=== PATIENT | male | born 1930 | race Caucasian/White ===

== ENCOUNTER 2018-01-04 14:56 | Inpatient (IN) | payer MEDICARE, OTHER ==
[2018-01-04] MEDS: FUROSEMIDE 40 MG INJ IV (15:25)
[2018-01-04] MEDS: ASPIRIN 325 MG TAB PO (15:25)
[2018-01-04] MEDS: NITROGLYCERIN 50 MG/D5W (PMX) 250 ML IV (15:30)
[2018-01-04 15:44] LABS: ADD MAN DIFF? NO
[2018-01-04 15:48] LABS: ABNORMAL IP MESSAGE 1; BASOPHILS % 0.3 % (0.0-2.0); EOSINOPHILS # 0.1 10^3/ul (0.0-0.5); EOSINOPHILS % 1.2 % (0.0-7.0); HEMATOCRIT 24.6 % (42.0-52.0); HEMOGLOBIN 8.1 g/dl (14.0-18.0); LYMPHOCYTES # 1.9 10^3/ul (0.8-2.9); MEAN CORPUSCULAR HEMOGLOBIN 35.5 pg (29.0-33.0); MEAN CORPUSCULAR HGB CONC 32.9 g/dl (32.0-37.0); MEAN CORPUSCULAR VOLUME 107.9 fl (82.0-101.0); MEAN PLATELET VOLUME 10.5 fl (7.4-10.4); MONOCYTE # 0.7 10^3/ul (0.3-0.9); MONOCYTES % 8.5 % (0.0-11.0); NEUTROPHIL # 5.8 10^3/ul (1.6-7.5); NEUTROPHILS % 66.4 % (39.0-77.0); NUCLEATED RED BLOOD CELLS% 0.2 /100WBC (0.0-0.0); PLATELET COUNT 329 10^3/UL (140-415); POSITIVE DIFF @See below; RED BLOOD COUNT 2.28 10^6/ul (4.70-6.10); RED CELL DISTRIBUTION WIDTH 23.1 % (11.5-14.5)
[2018-01-04 15:48] LABS: WHITE BLOOD COUNT 8.7 10^3/ul (4.8-10.8)
[2018-01-04] MEDS: ALBUTEROL 0.5% (NEB) 2.5 MG/0.5 ML AMP INH (16:04)
[2018-01-04 16:14] LABS: ALANINE AMINOTRANSFERASE 17 IU/L (13-69); ALBUMIN 4.8 g/dl (3.3-4.9); ALBUMIN/GLOBULIN RATIO 1.54; ALKALINE PHOSPHATASE 67 IU/L (42-121); ASPARTATE AMINO TRANSFERASE 20 IU/L (15-46); BILIRUBIN,INDIRECT 0.4 mg/dl (0-1.1); BILIRUBIN,TOTAL 0.4 mg/dl (0.2-1.3); BLOOD UREA NITROGEN 29 mg/dl (7-20); CALCIUM 9.8 mg/dl (8.4-10.2); CHLORIDE 97 mmol/L (97-110); CREATININE 1.44 mg/dl (0.61-1.24); GLUCOSE 160 mg/dl (70-220); SODIUM 138 mmol/L (135-144); TOTAL PROTEIN 7.9 g/dl (6.1-8.1)
[2018-01-04 16:15] LABS: INR 1.04; PROTIME 13.7 Sec (11.9-14.9); PT RATIO 1.1
[2018-01-04 16:16] LABS: PARTIAL THROMBOPLASTIN TIME 26.6 Sec (25.0-35.0)
[2018-01-04] MEDS: ENALAPRILAT 1.25 MG INJ IV (16:19)
[2018-01-04 16:23] LABS: B-TYPE NATRIURETIC PEPTIDE 2360 PG/ML (0-450); TROPONIN-I 0.018 ng/ml (0.00-0.12)
[2018-01-04 16:29] LABS: ANION GAP 21 (8-16)
[2018-01-04 16:30] LABS: CARBON DIOXIDE 24 mmol/L (21-31)
[2018-01-04] MEDS ORDERED: ALBUTEROL 0.083% (NEB) 2.5 MG/3 ML AMP NEB (17:30)
[2018-01-04] MEDS ORDERED: ACETAMINOPHEN 325 MG TAB PO (17:30)
[2018-01-04] MEDS ORDERED: DOCUSATE SODIUM 100 MG CAP PO (17:30)
[2018-01-04] MEDS ORDERED: MAGNESIUM HYDROXIDE 30ML CUP PO (17:30)
[2018-01-04] MEDS ORDERED: NITROGLYCERIN 50 MG/D5W (PMX) 250 ML IV (17:30)
[2018-01-04] MEDS: ONDANSETRON 4 MG INJ IV (18:14)
[2018-01-04] MEDS: morphine 2 MG INJ IV (18:14)
[2018-01-04 18:30] LABS: IRON 117 ug/dl (35-150)
[2018-01-04] MEDS ORDERED: GLUCAGON 1 MG INJ IM (18:30)
[2018-01-04] MEDS ORDERED: GLUCOSE GEL 15 GRAM TUBE BUCCAL (18:30)
[2018-01-04] MEDS ORDERED: GLUCOSE GEL 15 GRAM TUBE PO ×2 (18:30)
[2018-01-04] MEDS ORDERED: DEXTROSE 50% 50 ML SYRINGE IV ×2 (18:30)
[2018-01-04 18:39] LABS: % IRON SATURATION 30 % SAT (22-52); TOTAL IRON BINDING CAPACITY 393 ug/dl (241-421)
[2018-01-04 19:20] LABS: HEMOGLOBIN A1C 6.8 % (0-5.9)
[2018-01-04] MEDS: TAMSULOSIN (SR) 0.4 MG CAP PO (21:27)
[2018-01-04] MEDS: ATORVASTATIN 40 MG TAB PO (21:27)
[2018-01-04] MEDS: ISOSORBIDE MONONITRATE(SR)60 MG TAB PO (21:28)
[2018-01-04 21:58] LABS: CREATINE KINASE 72 IU/L (23-200)
[2018-01-04 22:12] LABS: CK INDEX 7.6; CK-MB 5.44 ng/ml (0.0-2.4)
[2018-01-04] MEDS: INSULIN ASPART [NOVOLOG] 3 ML PEN SC (22:57)
[2018-01-05] MEDS: ACCU-CHEK XX (02:18)
[2018-01-05 03:33] LABS: ADD MAN DIFF? NO
[2018-01-05 04:07] LABS: ALBUMIN 3.4 g/dl (3.3-4.9); ANION GAP 15 (8-16); BLOOD UREA NITROGEN 25 mg/dl (7-20); CARBON DIOXIDE 27 mmol/L (21-31); CHLORIDE 99 mmol/L (97-110); CREATINE KINASE 86 IU/L (23-200); CREATININE 1.24 mg/dl (0.61-1.24); GLUCOSE 223 mg/dl (70-220); MAGNESIUM 2.1 mg/dl (1.7-2.5); PHOSPHORUS 3.2 mg/dl (2.5-4.9); SODIUM 137 mmol/L (135-144)
[2018-01-05 04:19] LABS: CK INDEX 6.6
[2018-01-05 04:31] LABS: CK-MB 5.69 ng/ml (0.0-2.4)
[2018-01-05 05:05] LABS: WHITE BLOOD COUNT 4.8 10^3/ul (4.8-10.8)
[2018-01-05 05:05] LABS: ABNORMAL IP MESSAGE 1; BASOPHILS % 0.2 % (0.0-2.0); EOSINOPHILS % 0.8 % (0.0-7.0); HEMATOCRIT 18.4 % (42.0-52.0); LYMPHOCYTES # 0.9 10^3/ul (0.8-2.9); LYMPHOCYTES % 18.4 % (15.0-51.0); MEAN CORPUSCULAR HEMOGLOBIN 35.7 pg (29.0-33.0); MEAN CORPUSCULAR HGB CONC 33.2 g/dl (32.0-37.0); MEAN CORPUSCULAR VOLUME 107.6 fl (82.0-101.0); MONOCYTE # 0.4 10^3/ul (0.3-0.9); MONOCYTES % 8.1 % (0.0-11.0); NEUTROPHIL # 3.4 10^3/ul (1.6-7.5); NEUTROPHILS % 71.2 % (39.0-77.0); PLATELET COUNT 198 10^3/UL (140-415); POSITIVE DIFF @See below; RED BLOOD COUNT 1.71 10^6/ul (4.70-6.10); RED CELL DISTRIBUTION WIDTH 23.3 % (11.5-14.5)
[2018-01-05 05:13] LABS: HEMOGLOBIN 6.1 g/dl (14.0-18.0)
[2018-01-05 05:29] LABS: CREATINE KINASE 81 IU/L (23-200)
[2018-01-05] MEDS: FUROSEMIDE 20 MG INJ IV ×2 (05:36→18:15)
[2018-01-05] MEDS: PANTOPRAZOLE (EC) 40 MG TAB PO (05:36)
[2018-01-05] MEDS: INSULIN ASPART [NOVOLOG] 3 ML PEN SC ×5 (08:02→21:43)
[2018-01-05] MEDS: ISOSORBIDE MONONITRATE(SR)60 MG TAB PO ×2 (09:00→21:37)
[2018-01-05] MEDS: SPIRONOLACTONE 50 MG TAB PO (09:39)
[2018-01-05] MEDS: CLOPIDOGREL 75 MG TAB PO (09:39)
[2018-01-05] MEDS: ASPIRIN (EC) 81 MG TAB PO (09:39)
[2018-01-05 12:32] LABS: FOLATE > 20.0 ng/ml (2.8-20.0)
[2018-01-05 18:21] LABS: HEMATOCRIT 27.7 % (42.0-52.0); HEMOGLOBIN 9.3 g/dl (14.0-18.0)
[2018-01-05] MEDS: TAMSULOSIN (SR) 0.4 MG CAP PO (21:37)
[2018-01-05] MEDS: ATORVASTATIN 40 MG TAB PO (21:37)
[2018-01-05] MEDS: METOPROLOL 25 MG TAB PO (21:38)
[2018-01-06] MEDS: ACCU-CHEK XX (03:12)
[2018-01-06] MEDS: PANTOPRAZOLE (EC) 40 MG TAB PO (06:04)
[2018-01-06] MEDS: FUROSEMIDE 20 MG INJ IV ×2 (06:05→17:16)
[2018-01-06 06:20] LABS: ADD MAN DIFF? NO
[2018-01-06 06:29] LABS: ABNORMAL IP MESSAGE 1; BASOPHILS % 0.4 % (0.0-2.0); EOSINOPHILS # 0.1 10^3/ul (0.0-0.5); EOSINOPHILS % 1.6 % (0.0-7.0); HEMATOCRIT 26.7 % (42.0-52.0); HEMOGLOBIN 9.1 g/dl (14.0-18.0); LYMPHOCYTES # 1.2 10^3/ul (0.8-2.9); LYMPHOCYTES % 14.9 % (15.0-51.0); MEAN CORPUSCULAR HEMOGLOBIN 34.3 pg (29.0-33.0); MEAN CORPUSCULAR HGB CONC 34.1 g/dl (32.0-37.0); MEAN CORPUSCULAR VOLUME 100.8 fl (82.0-101.0); MEAN PLATELET VOLUME 10.6 fl (7.4-10.4); MONOCYTE # 0.6 10^3/ul (0.3-0.9); MONOCYTES % 7.7 % (0.0-11.0); NEUTROPHIL # 6.1 10^3/ul (1.6-7.5); NEUTROPHILS % 73.9 % (39.0-77.0); PLATELET COUNT 232 10^3/UL (140-415); POSITIVE DIFF @See below; RED BLOOD COUNT 2.65 10^6/ul (4.70-6.10); RED CELL DISTRIBUTION WIDTH 22.7 % (11.5-14.5)
[2018-01-06 06:29] LABS: WHITE BLOOD COUNT 8.3 10^3/ul (4.8-10.8)
[2018-01-06 07:03] LABS: ANION GAP 18 (8-16); BLOOD UREA NITROGEN 27 mg/dl (7-20); CALCIUM 9.3 mg/dl (8.4-10.2); CARBON DIOXIDE 25 mmol/L (21-31); CHLORIDE 99 mmol/L (97-110); CREATININE 1.32 mg/dl (0.61-1.24); GLUCOSE 160 mg/dl (70-220); POTASSIUM 4.6 mmol/L (3.5-5.1); SODIUM 137 mmol/L (135-144)
[2018-01-06 07:24] LABS: MAGNESIUM 2.1 mg/dl (1.7-2.5)
[2018-01-06] MEDS: ASPIRIN (EC) 81 MG TAB PO (08:47)
[2018-01-06] MEDS: CLOPIDOGREL 75 MG TAB PO (08:47)
[2018-01-06] MEDS: ISOSORBIDE MONONITRATE(SR)60 MG TAB PO ×2 (08:47→20:51)
[2018-01-06] MEDS: METOPROLOL 25 MG TAB PO ×2 (08:48→20:51)
[2018-01-06] MEDS: INSULIN ASPART [NOVOLOG] 3 ML PEN SC ×4 (08:50→20:56)
[2018-01-06 17:45] LABS: IMMEDIATE SPIN CROSSMATCH 1 3
[2018-01-06] MEDS: TAMSULOSIN (SR) 0.4 MG CAP PO (20:50)
[2018-01-06] MEDS: ATORVASTATIN 40 MG TAB PO (20:51)
[2018-01-07] MEDS: ACCU-CHEK XX (02:00)
[2018-01-07] MEDS: PANTOPRAZOLE (EC) 40 MG TAB PO (05:55)
[2018-01-07] MEDS: FUROSEMIDE 20 MG INJ IV (05:55)
[2018-01-07 06:47] LABS: ADD MAN DIFF? NO
[2018-01-07 07:03] LABS: ABNORMAL IP MESSAGE 1; BASOPHILS % 0.3 % (0.0-2.0); EOSINOPHILS # 0.2 10^3/ul (0.0-0.5); EOSINOPHILS % 3.3 % (0.0-7.0); HEMATOCRIT 28.6 % (42.0-52.0); HEMOGLOBIN 9.6 g/dl (14.0-18.0); LYMPHOCYTES % 16.4 % (15.0-51.0); MEAN CORPUSCULAR HEMOGLOBIN 32.8 pg (29.0-33.0); MEAN CORPUSCULAR HGB CONC 33.6 g/dl (32.0-37.0); MEAN CORPUSCULAR VOLUME 97.6 fl (82.0-101.0); MEAN PLATELET VOLUME 10.8 fl (7.4-10.4); MONOCYTE # 0.4 10^3/ul (0.3-0.9); MONOCYTES % 6.7 % (0.0-11.0); NEUTROPHIL # 4.3 10^3/ul (1.6-7.5); NEUTROPHILS % 71.5 % (39.0-77.0); PLATELET COUNT 188 10^3/UL (140-415); POSITIVE DIFF @See below; RED BLOOD COUNT 2.93 10^6/ul (4.70-6.10); RED CELL DISTRIBUTION WIDTH 22.5 % (11.5-14.5)
[2018-01-07 07:03] LABS: WHITE BLOOD COUNT 6.1 10^3/ul (4.8-10.8)
[2018-01-07 07:17] LABS: ALBUMIN 3.8 g/dl (3.3-4.9); ANION GAP 13 (8-16); BLOOD UREA NITROGEN 37 mg/dl (7-20); CALCIUM 9.4 mg/dl (8.4-10.2); CARBON DIOXIDE 28 mmol/L (21-31); CHLORIDE 100 mmol/L (97-110); CREATININE 1.36 mg/dl (0.61-1.24); GLUCOSE 168 mg/dl (70-220); MAGNESIUM 2.1 mg/dl (1.7-2.5); PHOSPHORUS 3.8 mg/dl (2.5-4.9); POTASSIUM 4.9 mmol/L (3.5-5.1); SODIUM 136 mmol/L (135-144)
[2018-01-07] MEDS: CLOPIDOGREL 75 MG TAB PO (08:46)
[2018-01-07] MEDS: METOPROLOL 25 MG TAB PO ×2 (08:47→20:57)
[2018-01-07] MEDS: ASPIRIN (EC) 81 MG TAB PO (08:47)
[2018-01-07] MEDS: ISOSORBIDE MONONITRATE(SR)60 MG TAB PO ×2 (08:47→20:58)
[2018-01-07] MEDS: INSULIN ASPART [NOVOLOG] 3 ML PEN SC ×4 (08:53→21:00)
[2018-01-07] MEDS: FUROSEMIDE 40 MG TAB PO (18:12)
[2018-01-07] MEDS: ATORVASTATIN 40 MG TAB PO (20:57)
[2018-01-07] MEDS: TAMSULOSIN (SR) 0.4 MG CAP PO (20:57)
[2018-01-08] MEDS: ACCU-CHEK XX (02:00)
[2018-01-08] MEDS: FUROSEMIDE 40 MG TAB PO ×2 (06:01→17:33)
[2018-01-08] MEDS: PANTOPRAZOLE (EC) 40 MG TAB PO (06:01)
[2018-01-08 07:50] LABS: ADD MAN DIFF? NO
[2018-01-08 08:01] LABS: BASOPHILS % 0.4 % (0.0-2.0); EOSINOPHILS # 0.2 10^3/ul (0.0-0.5); HEMOGLOBIN 9.4 g/dl (14.0-18.0); LYMPHOCYTES # 0.9 10^3/ul (0.8-2.9); MEAN CORPUSCULAR HEMOGLOBIN 33.3 pg (29.0-33.0); MEAN CORPUSCULAR HGB CONC 33.6 g/dl (32.0-37.0); MEAN CORPUSCULAR VOLUME 99.3 fl (82.0-101.0); MEAN PLATELET VOLUME 10.8 fl (7.4-10.4); MONOCYTE # 0.4 10^3/ul (0.3-0.9); MONOCYTES % 8.3 % (0.0-11.0); NEUTROPHIL # 3.2 10^3/ul (1.6-7.5); NEUTROPHILS % 65.4 % (39.0-77.0); PLATELET COUNT 176 10^3/UL (140-415); RED BLOOD COUNT 2.82 10^6/ul (4.70-6.10)
[2018-01-08 08:01] LABS: WHITE BLOOD COUNT 4.8 10^3/ul (4.8-10.8)
[2018-01-08 08:29] LABS: ALBUMIN 3.8 g/dl (3.3-4.9); ANION GAP 15 (8-16); BLOOD UREA NITROGEN 45 mg/dl (7-20); CALCIUM 9.4 mg/dl (8.4-10.2); CARBON DIOXIDE 28 mmol/L (21-31); CHLORIDE 101 mmol/L (97-110); CREATININE 1.36 mg/dl (0.61-1.24); GLUCOSE 160 mg/dl (70-220); MAGNESIUM 2.2 mg/dl (1.7-2.5); POTASSIUM 4.5 mmol/L (3.5-5.1); SODIUM 139 mmol/L (135-144)
[2018-01-08] MEDS: INSULIN ASPART [NOVOLOG] 3 ML PEN SC ×4 (08:59→21:50)
[2018-01-08] MEDS: METOPROLOL 25 MG TAB PO ×2 (09:00→21:40)
[2018-01-08] MEDS: ISOSORBIDE MONONITRATE(SR)60 MG TAB PO ×2 (09:01→21:40)
[2018-01-08] MEDS: ASPIRIN (EC) 81 MG TAB PO (09:02)
[2018-01-08] MEDS: CLOPIDOGREL 75 MG TAB PO (09:02)
[2018-01-08] MEDS: TAMSULOSIN (SR) 0.4 MG CAP PO (21:39)
[2018-01-08] MEDS: ATORVASTATIN 40 MG TAB PO (21:51)
[2018-01-09] MEDS: ACCU-CHEK XX (02:48)
[2018-01-09] MEDS: FUROSEMIDE 40 MG TAB PO (06:00)
[2018-01-09] MEDS: PANTOPRAZOLE (EC) 40 MG TAB PO (06:09)
[2018-01-09 07:26] LABS: ADD MAN DIFF? NO
[2018-01-09 07:30] LABS: BASOPHILS % 0.6 % (0.0-2.0); EOSINOPHILS # 0.2 10^3/ul (0.0-0.5); EOSINOPHILS % 4.3 % (0.0-7.0); HEMATOCRIT 27.1 % (42.0-52.0); LYMPHOCYTES % 18.1 % (15.0-51.0); MEAN CORPUSCULAR HEMOGLOBIN 32.7 pg (29.0-33.0); MEAN CORPUSCULAR HGB CONC 33.2 g/dl (32.0-37.0); MEAN CORPUSCULAR VOLUME 98.5 fl (82.0-101.0); MEAN PLATELET VOLUME 10.9 fl (7.4-10.4); MONOCYTE # 0.4 10^3/ul (0.3-0.9); MONOCYTES % 7.5 % (0.0-11.0); NEUTROPHIL # 3.6 10^3/ul (1.6-7.5); NEUTROPHILS % 68.2 % (39.0-77.0); PLATELET COUNT 187 10^3/UL (140-415); RED BLOOD COUNT 2.75 10^6/ul (4.70-6.10); RED CELL DISTRIBUTION WIDTH 21.3 % (11.5-14.5)
[2018-01-09 07:30] LABS: WHITE BLOOD COUNT 5.3 10^3/ul (4.8-10.8)
[2018-01-09 07:54] LABS: ANION GAP 13 (8-16); BLOOD UREA NITROGEN 50 mg/dl (7-20); CALCIUM 9.5 mg/dl (8.4-10.2); CARBON DIOXIDE 28 mmol/L (21-31); CHLORIDE 98 mmol/L (97-110); CREATININE 1.23 mg/dl (0.61-1.24); GLUCOSE 172 mg/dl (70-220); PHOSPHORUS 3.8 mg/dl (2.5-4.9); POTASSIUM 4.8 mmol/L (3.5-5.1); SODIUM 134 mmol/L (135-144)
[2018-01-09 07:56] LABS: MAGNESIUM 2.2 mg/dl (1.7-2.5)
[2018-01-09] MEDS: INSULIN ASPART [NOVOLOG] 3 ML PEN SC ×2 (08:01→12:55)
[2018-01-09] MEDS: CLOPIDOGREL 75 MG TAB PO (08:57)
[2018-01-09] MEDS: ASPIRIN (EC) 81 MG TAB PO (08:57)
[2018-01-09] MEDS: METOPROLOL 25 MG TAB PO (08:58)
[2018-01-09] MEDS: ISOSORBIDE MONONITRATE(SR)60 MG TAB PO (08:58)
[2018-01-09 23:17] LABS: SODIUM,URINE RANDOM 29 mmol/L (30-90)
[2018-01-09 23:18] LABS: CREATININE,URINE RANDOM 42.63 mg/dl (20-370); PROTEIN/CREAT RATIO 0.23 RATIO
[2018-01-11] MEDS ORDERED: ERGOCALCIFEROL 50,000 UNIT CAP PO (09:00)
== END 2018-01-09 16:53 | disposition home or self-care (01) | DRG 280 ==
LOC: E/R 14:56 → MS4 20:33 → ICU 18:36
PROVIDERS: Internal Medicine
PROC: 30233N1 Transfusion of Nonautologous Red Blood Cells into Peripheral Vein, Percutaneous Approach (ICD-10-PCS; principal; 2018-01-05)
DX: I21.A1 Myocardial infarction type 2 (principal); I50.33 Acute on chronic diastolic (congestive) heart failure; N17.9 Acute kidney failure, unspecified; I13.0 Hypertensive heart and chronic kidney disease with heart failure and stage 1 through stage 4 chronic kidney disease, or unspecified chronic kidney disease; I25.10 Atherosclerotic heart disease of native coronary artery without angina pectoris; E11.22 Type 2 diabetes mellitus with diabetic chronic kidney disease; N18.9 Chronic kidney disease, unspecified; E78.5 Hyperlipidemia, unspecified; D63.8 Anemia in other chronic diseases classified elsewhere; I35.0 Nonrheumatic aortic (valve) stenosis; Z79.82 Long term (current) use of aspirin; Z95.1 Presence of aortocoronary bypass graft; Z95.5 Presence of coronary angioplasty implant and graft
CPT/HCPCS: 36415; 36430; 71045; 76775; 80048; 80053; 80069; 81003; 82550; 82553; 82570; 82607; 82746; 82962; 83036; 83540; 83735; 83880; 84100; 84300; 84484; 84560; 85014; 85018; 85025; 85610; 85730; 86850; 86900; 86901; 86920; 87081; 89190; 93005; 93306; 94644; 96374; 96375; 97163; 97166; 99291-25; J1940